=== PATIENT | male | born 1985 | race Native Hawaiian/Other Pacific Islander ===

== ENCOUNTER 2021-12-18 09:23 | Outpatient (CLI) | payer OTHER, SELFPAY ==
[2021-12-18 12:12] LABS: Albumin* 4.3 g/dL (3.3-5.0); Chloride* 102 mmol/L (96-114); Sodium* 139 mmol/L (135-149)
[2021-12-18 12:15] LABS: Alanine Aminotransferase* 65 U/L (4-50); Alkaline Phosphatase* 99 U/L (40-150); Aspartate Amino Transferase* 40 U/L (12-35); Bilirubin Total* 0.6 mg/dL (0.1-1.5); Blood Urea Nitrogen* 16 mg/dL (5-24); Carbon Dioxide* 28 mmol/L (20-32); Cholesterol* 152 mg/dL (90-199); Creatinine* 0.7 mg/dL (0.5-1.5); Estimated Glomerular Filt Rate 122 ml/min; Glucose* 162 mg/dL (60-115)
[2021-12-18 12:16] LABS: Calcium* 9.1 mg/dL (8.4-10.6); HDL Cholesterol* 33 mg/dL (>=40); LDL Cholesterol Calculated 96 mg/dL (<100); Triglycerides* 117 mg/dL (40-149)
[2021-12-18 12:19] LABS: Creatinine Urine 265.5 mg/dL
[2021-12-18 12:21] LABS: Microalbumin Creatinine Ratio 0 mg/g (0-30); Microalbumin Urine 1 mg/dL
[2021-12-18 12:34] LABS: Vitamin D 25 Hydroxy* 23 ng/mL (30-80)
[2021-12-18 13:04] LABS: Vitamin B12* 698 pg/mL (243-894)
== END 2021-12-18 09:24 | disposition home or self-care (01) ==
PROVIDERS: Visit Provider Family Medicine
DX: Z00.00 Encounter for general adult medical examination without abnormal findings (principal); R53.83 Other fatigue; E11.9 Type 2 diabetes mellitus without complications; E66.9 Obesity, unspecified; Z13.6 Encounter for screening for cardiovascular disorders
CPT/HCPCS: 80053; 80061; 82043; 82306; 82570; 82607; 84443

== ENCOUNTER 2023-04-28 09:23 | Outpatient (CLI) | payer OTHER, SELFPAY | END 2023-04-28 09:24 | disposition home or self-care (01) | LOC: NFLDREF 04-29 06:49 | PROVIDERS: PCP Family Medicine; Referring Provider Family Medicine; Visit Provider Family Medicine | DX: E11.9 Type 2 diabetes mellitus without complications (principal); Z79.84 Long term (current) use of oral hypoglycemic drugs; Z13.228 Encounter for screening for other metabolic disorders | CPT/HCPCS: 80053; 80061; 82043; 82306; 82570 ==

== ENCOUNTER 2023-04-29 09:27 | Outpatient (CLI) | payer OTHER, SELFPAY | END 2023-04-29 09:28 | disposition home or self-care (01) | LOC: NFLDREF 05-03 12:45 | PROVIDERS: PCP Family Medicine; Referring Provider Family Medicine; Visit Provider Family Medicine | DX: E11.9 Type 2 diabetes mellitus without complications (principal); E55.9 Vitamin D deficiency, unspecified; E66.9 Obesity, unspecified; Z68.35 Body mass index [BMI] 35.0-35.9, adult; Z79.84 Long term (current) use of oral hypoglycemic drugs | CPT/HCPCS: 80053; 80061; 82306 ==

== ENCOUNTER 2023-10-13 08:54 | Outpatient (CLI) | payer OTHER, SELFPAY | END 2023-10-13 08:55 | disposition home or self-care (01) | PROVIDERS: PCP Family Medicine; Visit Provider Family Medicine | DX: E11.9 Type 2 diabetes mellitus without complications (principal); R53.83 Other fatigue | CPT/HCPCS: 80053 ==

== ENCOUNTER 2023-11-16 19:47 | Outpatient (CLI) | payer OTHER, SELFPAY ==
--- NOTE | 2023-12-06 11:36 | W.PM.SLEEP ---
Sleep Study Details Details Interpreting Provider: Jer Date of Sleep Study: 11/16/23 Sleep Study Details: STUDY TYPE:? Home unattended ? BMI:? 31.9 ORDERING PROVIDER:? Pavel INDICATION:? Concern about sleep apnea ? SLEEP SUMMARY:? 374.2 minutes RESPIRATORY SUMMARY:? AHI 20.4 Low oxygen 80 5.1% of study oxygen less than 90% Snoring 0.8% PERIODIC LIMB MOVEMENTS OF SLEEP:? Not record CARDIAC:? Range 39-87, mean 47.3 IMPRESSION:? Moderate obstructive sleep apnea with significant desaturation RECOMMENDATION: AutoSet CPAP is the favor treatment. Dental appliance may be effective also.
== END 2023-11-16 19:48 | disposition home or self-care (01) ==
LOC: SLEEP 19:48
PROVIDERS: PCP Family Medicine; Visit Provider Family Medicine
DX: G47.33 Obstructive sleep apnea (adult) (pediatric) (principal)
CPT/HCPCS: 95806

== ENCOUNTER 2023-12-08 09:00 | Outpatient (RCR) | payer OTHER, SELFPAY | END 2024-02-13 14:37 | disposition home or self-care (01) | PROVIDERS: PCP Family Medicine; Visit Provider Nurse Practitioner Family | DX: S49.91XA Unspecified injury of right shoulder and upper arm, initial encounter (principal); Z51.89 Encounter for other specified aftercare | CPT/HCPCS: 97110; 97140; 97161 ==

== ENCOUNTER 2024-07-20 10:24 | Outpatient (CLI) | payer BC, SELFPAY | END 2024-07-20 10:25 | disposition home or self-care (01) | LOC: NFLDREF 07-24 17:56 | PROVIDERS: PCP Family Medicine; Referring Provider Family Medicine; Visit Provider Family Medicine | DX: E55.9 Vitamin D deficiency, unspecified (principal); E78.5 Hyperlipidemia, unspecified; E11.9 Type 2 diabetes mellitus without complications | CPT/HCPCS: 80053; 80061; 82043; 82306; 82570; 82607 ==

== ENCOUNTER 2024-08-02 10:00 | Outpatient (CLI) | payer BC, SELFPAY ==
--- NOTE | 2024-08-02 10:15 | CRLHL7_ITS ---
For Patients: As a result of the Century Cures Act, medical imaging exams and procedure reports are released immediately into your electronic medical record. You may view this report before your referring provider. If you have questions, please contact your health care provider. EXAM: MRI OF THE LEFT KNEE, WITHOUT CONTRAST CLINICAL INDICATION: Left knee pain injury 4 months prior. Abnormal x-ray. COMPARISON PLAIN FILMS: 07/05/2024. COMPARISON CROSS-SECTIONAL IMAGING STUDIES: None available at time of interpretation. TECHNICAL: Axial, sagittal and coronal T1, PD, PD FS and T2 FS images. Knee coil. FINDINGS: MEDIAL COMPARTMENT: Medial Meniscus: High-grade tear of the posterior horn medial meniscus root attachment. Loss of hoop stress with peripheral extrusion of the body of the medial meniscus. Articular Cartilage: Moderate chondral thinning centrally in the medial femoral condyle (grade 3). Mild chondral thinning and fissuring centrally in the tibia (grade 2). - LATERAL COMPARTMENT: Lateral Meniscus: Normal size and morphology without tear. Articular Cartilage: Articular surfaces appear smooth without focal articular cartilage defect or subchondral marrow changes. - PATELLOFEMORAL COMPARTMENT: Articular Cartilage: Focal full-thickness chondral fissure in the medial trochlear groove with adjacent undermining chondral fissure. Slight elevation of the chondral flap without displacement of the chondral flap. Subchondral edema in the medial trochlear groove. Mild fraying at the patellar apex articular cartilage (grade 2). - CRUCIATE LIGAMENTS: Anterior Cruciate Ligament: Normal. Posterior Cruciate Ligament: Normal. - MEDIAL COLLATERAL LIGAMENT AND POSTEROMEDIAL CORNER COMPLEX: Medial Collateral Ligament: Normal. Medial Head of the Gastrocnemius and Semimembranosus Tendons: Normal. - LATERAL COLLATERAL LIGAMENT COMPLEX AND POSTEROLATERAL CORNER COMPLEX: Fibular Collateral Ligament: Normal. Distal Biceps Femoris Tendon Complex: Normal. Iliotibial Band: Normal. Popliteus Tendon: Normal. Posterolateral Corner Capsule: Normal. - EXTENSOR MECHANISM: Distal Quadriceps Tendon: Normal. Patellar Tendon: Normal. Medial Patellar Retinaculum and Medial Patellofemoral Ligament: Normal. Lateral Patellar Retinaculum: Normal. Normal patellar alignment. No patella annette. Normal trochlear depth. Normal lateral trochlear inclination. - JOINT SPACE: Effusion: Large knee joint effusion and popliteal cyst. Joint Bodies: None seen. - OSSEOUS STRUCTURES: No fracture, marrow edema or marrow replacement process. - PERIARTICULAR SOFT TISSUES: Periarticular Cysts or Ganglia: None. Bursae: No prepatellar, superficial infrapatellar, deep infrapatellar, pes anserinus or semimembranosus/MCL bursitis. Musculature: No muscle atrophy or muscle edema. Subcutaneous and Soft Tissues: No subcutaneous or soft tissue mass, edema or fluid collection. Neurovascular Structures: Normal. IMPRESSION: 1. High-grade tear of the posterior horn medial meniscus root attachment. Loss of hoop stress with peripheral extrusion of the body of the medial meniscus. 2. Mcjc-eo-[id number] chondromalacia centrally in the medial compartment. 3. Full-thickness chondral fissure with adjacent full-thickness undermining chondral fissure in the medial trochlear groove. Adjacent subchondral edema. Mild chondromalacia on the patellar apex. 4. Large knee joint effusion and popliteal cyst. Dictated by Bassem Castillo MD @ 08/03/2024 11:51:07 AM (Electronically Signed)
== END 2024-08-02 10:01 | disposition home or self-care (01) ==
LOC: MRI 10:01
PROVIDERS: PCP Family Medicine; Visit Provider Family Medicine
DX: M25.562 Pain in left knee (principal); S83.222A Peripheral tear of medial meniscus, current injury, left knee, initial encounter; M94.262 Chondromalacia, left knee; M25.462 Effusion, left knee; M71.22 Synovial cyst of popliteal space [Baker], left knee; G89.29 Other chronic pain
CPT/HCPCS: 73721

== ENCOUNTER 2024-11-23 13:32 | Outpatient (CLI) | payer BC, SELFPAY | END 2024-11-23 13:33 | disposition home or self-care (01) | LOC: NFLDUCREF 13:32 | PROVIDERS: PCP Family Medicine | DX: L03.114 Cellulitis of left upper limb (principal); B95.61 Methicillin susceptible Staphylococcus aureus infection as the cause of diseases classified elsewhere | CPT/HCPCS: 87070; 87186 ==

== ENCOUNTER 2024-11-26 17:30 | Emergency (ER) | payer BC, SELFPAY ==
--- OUTSIDE RECORDS SUMMARY | 2024-11-26 17:33 | XMS_ITS | Clinical Summary ---
Author Organization [facility] [facility] Address [address] [place] [id number] Care Team Providers Care In House Cra Name Role Phone Clinic, No Pcp Or Primary Care Provider Unavaila ble Allergies No known active allergies Medications methylPREDNISol one (Medrol (Charlie)) 4 mg tabletIndicatio ns:Acute midline low back pain with left-sided sciatica Take by mouth as instructed per packaging. 21 Tablet 5 Active buprenorphine-n aloxone (8 mg-2 mg) (8-2 mg/tablet) sublingual tablet 3 TABS SUBLINGUALLY DAILY; PLEASE ALLOW HIM TO POTLINE MONITOR EARLY - HE HAS WORK TRAVELS AND THERE ARE NOT CONCERNS ABOUT HIS SAFETY/MISUSE 5 Active metFORMIN 500 mg Extended-Releas e tablet Take 1 Tablet by mouth two times daily. 4 Active Active Problems No known active problems Encounters Date Type Department Care Team Description 08/31/2024 Telephone [facility] [address] [place] [address] Kevin Peña DO Prior Authorization (methylPREDNISolone (Medrol (Charlie)) 4 mg tablet CLOSED/BILL THRU WORKER'S COMP.) 08/29/2024 9:45 AM CDT Office Visit [facility] [address] [place] [address] Kevin Peña DO Occ Med (august 23 patient was lifting heavy box sharp pain down the center of back that then went down left leg./Patient wakes up every morning with pain) 08/29/2024 Travel from Last 3 Months Social History Tobacco Use Types Packs/Day Years Used Date Smoking Tobacco: Never Smokeless Tobacco: Never Tobacco Cessation:Counseling Given: Not Answered Sex and Gender Information Value Date Recorded Sex Assigned at Not on file Legal Sex Male 11:04 AM CDT Gender Identity Not on file Sexual Orientation Not on file Obstetrics History Last Filed Vital Signs Vital Sign Reading Time Taken Comments Blood Pressure 132/76 08/29/2024 10:02 AM CDT Pulse 51 08/29/2024 10:02 AM CDT Temperature - - Respiratory Rate - - Oxygen Saturation 99% 08/29/2024 10:02 AM CDT Inhaled Oxygen Concentration - - Weight - - Height - - Body Mass Index - - Plan of Treatment Health Maintenance Due Date Last Done Comments Tetanus booster 1995 Depression screening for age 12+ 1996 HIV for age 15-65 1999 BMI (ht and wt on same day) for age 18+ 2002 Hepatitis C screening for ag e 18-79 2002 Hepatitis B series for 19+ ( 1 of 3 - 19+ 3-dose series) 2003 Lipids for age 35-44 2019 Influenza Vaccine (#1) 2024 COVID-19 vaccine series Completed 03/06/20 24, 05/03/2023, 02/01/2022 Pneumococcal series for age 6-49 Aged Out No longer eligible b ased on patient's age to complete this topic Care Teams In House Cra Relationship Specialty Start Date End Date Clinic, No Pcp Or . PCP - General 09/14/21
--- OUTSIDE RECORDS SUMMARY | 2024-11-26 17:33 | XMS_ITS | Patient Health Record ---
Author Organization [facility] Address [address] [place] [address] Care Team Providers Care Prospecting Driller Name Role Phone Satya Echols Primary Care Provider Reason For Referral No Information Medications Medication SIG (Take, Route, Frequency, Duration) Notes Start Date End Date Status metFORMIN 1000 mg 1 tab(s) orally once a day; Duration: 30 day(s) 01/12/2021 Active Glucosamine 750 mg twice a day; Duratio n: at least 4-6 months 04/21/2020 Active tumeric herbal anti-inflamatory as directed daily 04/21/2020 Active metFORMIN 500 mg 1 tab(s) orally 2 ti mes a day; Duration: 30 day(s) 01/12/2018 Not-Taking Glucometer #1 01/09/2020 Active Social History Tobacco Use: Social History Observation Description Date Details (start date - stop date) Never Smoker NA - NA Tobacco Use: Question Answer Notes Smoking status: Non-smoker Section Notes: average diet average diet average diet average diet average diet Problems Problem Type SNOMED Code ICD Code Onset Dates Problem Status W/U Status Risk Notes Problem Type 2 diabetes mellitus without complications (E11.9) Active confirmed Problem Cellulitis of face (235753157) Cellulitis of face (L03.211) Active confirmed Plan Of Treatment Pending Test Test Name Order Date * HEMOGLOBIN A1C 01/09/2018 CBC, CMP, LIPID PANEL 04/21/2020 CBC, CMP, LIPID PANEL 01/09/2018 CBC, CMP, LIPID PANEL, HEMOGLOBIN A1C Insurance Providers Payer Name Payer Address Payer Phone Subscriber Number Group Number Insured Name Patient Relationship to Insured Coverage Start Date Coverage End Date [employer] SING[address] [place] [address] [id number] HARMONY ALVAREZ Self - patient is the insured Medical (General) History Medical History History ICD Code diabetes mellitus temporal lobe epilepsy
[2024-11-26 17:40] VITALS: BP 122/74; PULSE 92; RESP 18; TEMP 36.2; O2SAT 99; BMI 31.6
--- NOTE | 2024-11-26 18:03 | ED_ITS ---
HPI - General Adult General Chief complaint: Skin/Abscess/Foreign Body Stated complaint: possible staff infection Time Seen by Provider: 11/26/24 17:46 History of Present Illness HPI narrative: This 39-year-old male comes in because of a persistent cutaneous abscess on the volar aspect of his left forearm. He was seen in urgent care a couple days ago and at that time had incision and drainage with a small amount of purulence but mostly blood. This was sent to culture and returns with evidence of a Staph aureus infection that is sensitive to most antibiotics. He was prescribed Bactrim which happens to be the least effective of the antibiotics that were sensitive to this organism. He does not report any fevers. He has not had any other drainage. His erythema and swelling is not worsening but not improving. Related Data Previous Rx's ?Medication ?Instructions ?Recorded mupirocin 2 % topical ointment 1 applic topical TID #2 2 grams 06/19/24 cholecalciferol (vitamin D3) 25 25 mcg PO QDAY #90 cap s 07/25/24 mcg (1,000 unit) capsule buprenorphine 8 mg-naloxone 2 mg 3 tab sublingual ZINA Y #90 tabs 11/12/24 sublingual tablet sulfamethoxazole 800 1 tab PO BID 7 days #14 tabs 11/23/24 mg-trimethoprim 160 mg tablet (Bactrim DS) clindamycin HCl 300 mg capsule 300 mg PO TID #20 caps 11/26/24 Allergies Allergy/AdvReac Type Severity Reaction Status Date / Time No Known Allergies Allergy Verified 11/26/24 17:44 Review of Systems Status of ROS: Reports: 10 or more systems reviewed and unremarkable except as noted in History and below Narrative: Constitutional: No fevers, no weight gain or loss. Eyes: No discharge. No vision changes. HENT: No congestion, no sore throat, no ear pain. Cardiovascular: No chest pain, no palpitations. Respiratory: No shortness of breath, no wheezes, no cough. Gastrointestinal: No abdominal pain, no vomiting, no diarrhea. Genitourinary: No dysuria, no hematuria. Musculoskeletal: Normal range of motion. Skin: No rashes, no pruritis. Neurological: No dizziness, weakness, sensory change, speech change. Endo/Heme/Allergies: No bruising or bleeding. No polydipsia. Pysch: no suicidality, no anxiety, no insomnia. All other systems reviewed and are negative. PFSH PFSH Medical History Obstructive sleep apnea treated with continuous positive airway pressure (CPAP) ?G47.33 - Obstructive sleep apnea (adult) (pediatric) (ICD-10) Dyslipidemia ?E78.5 - Hyperlipidemia, unspecified (ICD-10) Generalized anxiety disorder ?F41.1 - Generalized anxiety disorder (ICD-10) Diabetes mellitus (2010) ?E11.9 - Type 2 diabetes mellitus without complications (ICD-10) Chronic depressive disorder ?F32.A - Depression, unspecified (ICD-10) Epilepsy (2006) ?G40.909 - Epilepsy, unspecified, not intractable, without status epilepticus (ICD-10) Moderate opioid use disorder, in sustained remission ?F11.21 - Opioid dependence, in remission (ICD-10) Surgical History History of right knee surgery (2002) ?Z98.890 - Other specified postprocedural states (ICD-10) Family History Maternal Grandmother Myocardial infarction, Onset Age: 85 Dependence on renal dialysis Maternal Grandfather Myocardial infarction Epilepsy Paternal Grandfather Myocardial infarction, Onset Age: 43 Mother Type 2 diabetes mellitus Epilepsy Social History Narrative: : [employer] [facility], 2 daughters, exercises 8 times a week [employer] . lifetime nonsmoker, does not drink alcohol What is your current living situation?: I have a place to live at present, but am concerned about future Problems where you live: no known problems In the past 12 months, utilities in danger of being shut off: no In past 12 months, lack of transportation kept you from medical appts, meetings, work, or getting things needed for daily living: no In the past 12 mos, have been you worried that your food would run out before you had money to buy more?: never true In the past 12 mos, the food you bought just didn't last and you didn't have money to buy more?: never true Smoking Status: Never smoker How often does anyone, including family, friends and others, physically hurt you : never How often does anyone, including family, friends and others, insult or talk down to you: never How often does anyone, including family, friends and others, threaten you with harm: never How often does anyone, including family, friends and others, scream or curse at you: never Health Related Social Needs: housing instability, housed, with risk of homelessness (Z59.811) Exam Narrative: Exam Narrative: Constitutional: Well-developed, well-nourished, no acute distress. HEENT: Normocephalic, atraumatic. Neck: Normal range of motion. Nontender. Supple. Heart: Intact distal pulses. Lungs: No chest discomfort. No wheezes, rhonchi, or rales. Abdomen: Nontender. Back: Normal range of motion. Extremities: Left forearm has a cutaneous abscess with swelling and erythema extending about 6 cm in diameter. A previous visit did include a dotted line drawn around the area of erythema. The erythema appears to have decreased since that time. Skin: Intact. No rash. Warm. No erythema or pallor. Neurologic: No altered sensation. No weakness. Alert and oriented. Psychiatric: No suicidality. No anxiety or depression. No insomnia. Nursing notes and vitals signs are reviewed. Const: Vital Signs, click to edit/add: Vital Signs - 24 hr 11/26/24 17:40 Temperature 97.1 F L Pulse Rate [Pulse Oximeter] 92 Respiratory Rate 18 Blood Pressure [Ri ght Upper Arm] 122/74 Pulse Oximetry 99 Oxygen Delivery Me thod Room Air Course Vital Signs Vital signs: Initial Vital Signs Temperature 97.1 F L 11/26/24 17:40 Temperature Source Temporal Artery Scan 11/26/24 17:40 Pulse Rate 92 11/26/24 17:40 Pulse Rhythm Regular 11/26/24 17:40 Pulse Strength 3+ Normal 11/26/24 17:40 Respiratory Rate 18 11/26/24 17:40 Blood Pressure 122/74 11/26/24 17:40 Blood Pressure Mean 90 11/26/24 17:40 Blood Pressure Position Sitting 11/26/24 17:40 Pulse Oximetry 99 11/26/24 17:40 Oxygen Delivery Method Room Air 11/26/24 17:40 Vital Signs Temperature 97.1 F L 11/26/24 17:40 Pulse Rate 92 11/26/24 17:40 Respiratory Rate 18 11/26/24 17:40 Blood Pressure 122/74 11/26/24 17:40 Pulse Oximetry 99 11/26/24 17:40 Oxygen Delivery Method Room Air 11/26/24 17:40 Temperature 97.1 F L 11/26/24 17:40 Pulse Rate 92 11/26/24 17:40 Respiratory Rate 18 11/26/24 17:40 Blood Pressure 122/74 11/26/24 17:40 Pulse Oximetry 99 11/26/24 17:40 Oxygen Delivery Method Room Air 11/26/24 17:40 Medical Decision Making MDM Narrative Medical decision making narrative: This patient comes in with persistent infection in his left forearm. I did use bedside ultrasound and saw a very small collection of fluid that was too small to warrant repeat incision and drainage. I did review culture and sensitivity results and the patient would benefit from a switch in antibiotics. He was prescribed clindamycin and is encouraged use [id number] medicines also as needed and directed. I did advise him regarding signs and symptoms that would indicate a need for return re-evaluation. Discharge Plan Discharge Clinical Impression: Abscess of skin or subcutaneous tissue Patient Disposition: Home, Self-Care Condition: Stable Additional Instructions: Discontinue Bactrim and take clindamycin as prescribed. Use [id number] medicines also as needed and directed. Follow up with MD return if worsening. Prescriptions: New clindamycin HCl 300 mg capsule 300 mg PO TID Qty: 20 0RF No Action sulfamethoxazole-trimethoprim [Bactrim DS] 800-160 mg tablet 1 tab PO BID 7 Days Qty: 14 0RF cholecalciferol (vitamin D3) 25 mcg (1,000 unit) capsule 25 mcg PO QDAY Qty: 90 4RF buprenorphine-naloxone 8-2 mg tablet, sublingual 3 tab sublingual DAILY Qty: 90 2RF Rx Instructions: please allow him to order picker early - he has work travels and there are not concerns about his safety/misuse of the med. mupirocin 2 % ointment 1 applic topical TID Qty: 22 2RF Follow Up/Referrals: Lidia Zhao MD [Primary Care Provider, Family Practice] Stand Alone Forms: [facility] Info Instructions Procedures POC Ultrasound Skin/Soft Tissue Anatomical areas examined: Left arm Indications: soft tissue pain, soft tissue swelling and soft tissue redness Exam type: limited soft tissue ultrasound Impression: abscess and cellulitis Descriptions/Findings: A small amount of fluid perhaps 2 mm in diameter is noted as an abscess.
== END 2024-11-26 18:21 | disposition home or self-care (01) ==
LOC: ED 18:18
PROVIDERS: Emergency Provider Emergency Medicine Emergency Medical Services; PCP Family Medicine
DX: L02.414 Cutaneous abscess of left upper limb (principal)
CPT/HCPCS: 99283; 99284

== ENCOUNTER 2025-01-07 10:35 | Outpatient (CLI) | payer BC, SELFPAY | END 2025-01-07 10:36 | disposition home or self-care (01) | PROVIDERS: PCP Family Medicine; Visit Provider Family Medicine | DX: R53.83 Other fatigue (principal) | CPT/HCPCS: 80053; 82728; 84443 ==